=== PATIENT | female | born 1990 | race American Indian/Alaskan Native ===

== ENCOUNTER 2016-07-06 08:11 | Emergency (ER) | payer SELFPAY ==
[2016-07-06] MEDS ORDERED: TORADOL IM ONE (11:27)
--- NOTE | 2016-07-06 11:27 | Emergency Department Report ---
Upper Extremity - HPI Chief Complaint: Extremity Injury, Upper Stated Complaint: LEFT WRIST SWOLLEN Time Seen by Provider: 07/06/16 10:52 Upper Extremity: Left Wrist Occurred When: 3 Days Severity: moderate Symptoms: Yes Pain with Movement, No Deformity, No Limited Range of Movement, No Numbness, No Weakness, No Swelling, No Bruising/Ecchymosis, No Laceration or Abrasion Other History: 25-year-old female past medical history obesity presents with complaint of 3 days of left wrist pain. Denies any fevers chills no direct trauma and no falls. Patient cannot recollect any specific action that caused pain in her wrist. Patient complaining of very mild swelling of her left wrist. Denies any paresthesias. Denies any other symptoms. Denies any history of DVT ED Review of Systems ROS: Stated complaint: LEFT WRIST SWOLLEN Other details as noted in HPI Constitutional: denies: chills, fever Eyes: denies: eye pain, eye discharge, vision change ENT: denies: ear pain, throat pain Respiratory: denies: cough, shortness of breath, wheezing Cardiovascular: denies: chest pain, palpitations Endocrine: no symptoms reported Gastrointestinal: denies: abdominal pain, nausea, diarrhea Genitourinary: denies: urgency, dysuria, discharge Musculoskeletal: as per HPI, joint swelling. denies: back pain, arthralgia Skin: denies: rash, lesions Neurological: denies: headache, weakness, paresthesias Psychiatric: denies: anxiety, depression Hematological/Lymphatic: denies: easy bleeding, easy bruising ED Past Medical Hx - Past Medical History Previous Medical History?: No - Surgical History Past Surgical History?: Yes Additional Surgical History: x 1 - Social History Smoking Status: Never Smoker Substance Use Type: Alcohol - Medications Home Medications: Home Medications Medication Instructions Recorded Confirmed Last Taken Type Cyclobenzaprine [Flexeril] 10 mg PO TID PRN #15 tablet 07/06/16 Unknown Rx Ibuprofen [Motrin 200 MG tab] 1 tab PO PRN PRN 07/06/16 07/06/16 07/06/16 History Naproxen [Naprosyn TAB] 500 mg PO BID PRN #30 tablet 07/06/16 Unknown Rx Upper Extremity Exam - Exam General: Vital signs noted. No distress. Alert and acting appropriately. Head and Torso: No HEENT Abnormality, No Neck Tenderness, No Chest/Lungs Abnormality, No Abdominal Tenderness, No Back Tenderness Shoulder Exam: Yes Normal Range of Motion in Shoulder, No Shoulder Tenderness, No Clavicle Tenderness, No Shoulder Deformity, No AC Joint Tenderness Arm Exam: No Arm/Humerus Tenderness, No Arm Deformity Elbow: No Elbow Tenderness, No Normal Range of Motion in Elbow, No Elbow Deformity Forearm: No Forearm Tenderness, No Forearm Deformity, No Pain with Pronation, No Pain with Supination Wrist: Yes Wrist Tenderness (mild dorsal wrist tenderness very mild swelling), Yes Normal ROM in Wrist (flexion and extension intact), No Wrist Deformity, No Snuffbox Tenderness (no snuffbox tenderness), No Pain with Axial Thumb Compression Hand: Yes Normal ROM in Digit(s), No Hand Tenderness, No Hand Deformity, No Digit Tenderness, No Digit(s) Deformity, No Tendon Dysfunction CMS Exam: Yes Normal Distal Pulses (distal brachial and radial pulses intact), Yes Normal Capillary Refill, No Broken Skin, No Normal Distal Sensation Hand L/R Front: 1 - Mild pain on palpation here, no erythema no signs of cellulitis ED Course Vital Signs 07/06/16 08:21 Temperature 98.3 F Pulse Rate 80 Respiratory 16 Rate Blood Pressure 139/83 O2 Sat by Pulse 97 Oximetry ED Medical Decision Making - Medical Decision Making A/P: Left wrist pain 1- x-ray within normal limits, patient feels relief with Toradol 2- range of motion flexion extension left wrist intact no clinical signs of infection no erythema 3-it is possible patient may have mild case of gout more likely tendinitis as patient states she works with her hands on a daily basis also possible to have carpal tunnel this patient does have positive Tinel's test 4-will place patient in the left wrist splint and refer to orthopedics and prescribed naproxen when necessary for pain 5-advised patient to return to the ED if she notices any erythema or develops any fever and chills Critical care attestation.: If time is entered above; I have spent that time in minutes in the direct care of this critically ill patient, excluding procedure time. ED Disposition Clinical Impression: Left wrist pain Disposition: DISCHARGED TO HOME OR SELFCARE Is pt being admited?: No Does the pt Need Aspirin: No Condition: Stable Instructions: Arthralgia (ED), Tendinitis (ED), Carpal Tunnel Syndrome (ED), RICE Therapy (ED) Prescriptions: Cyclobenzaprine [Flexeril] 10 mg PO TID PRN #15 tablet PRN Reason: Muscle Spasm Naproxen [Naprosyn TAB] 500 mg PO BID PRN #30 tablet PRN Reason: Pain Referrals: ALON HAYNES MD [Staff Physician] - 3-5 Days Forms: Work/School Release Form(ED) Time of Disposition: 12:28
--- NOTE | 2016-07-06 12:01 | XRay Report ---
LEFT WRIST, 4 views: HISTORY: Left wrist pain and swelling. Routine views demonstrate the carpal bones to be well mineralized with well preserved bony mineralization and interosseous joint spaces. The carpal and adjacent articular bones have normal contours. The surrounding soft tissues are unremarkable. IMPRESSION: Normal study.
[2016-07-06 12:42] VITALS: BP 127/83
== END 2016-07-06 12:50 | disposition home or self-care (01) ==
LOC: ED 08:11
DX: M25.532 Pain in left wrist (principal); E66.9 Obesity, unspecified; X58.XXXA Exposure to other specified factors, initial encounter; Y93.89 Activity, other specified; Y99.8 Other external cause status; Y92.89 Other specified places as the place of occurrence of the external cause
CPT/HCPCS: 29125; 73110; 96372; 99283; J1885

== ENCOUNTER 2018-10-31 16:27 | Emergency (ER) | payer SELFPAY ==
[2018-10-31 16:35] VITALS: BP 148/79
--- NOTE | 2018-10-31 16:36 | Event Note ---
ED Screening Note ED Screening Note: pmh carpel tunnel psh none rx none cc vag dc-abnormal for her denies pain at present but pelvic pain very bad during cycle 1 partner, not protected This initial assessment/diagnostic orders/clinical plan/treatment(s) is/are subject to change based on patients health status, clinical progression and re- assessment by fellow clinical providers in the ED. Further treatment and workup at subsequent clinical providers discretion. Patient/guardian urged not to elope from the ED as their condition may be serious if not clinically assessed and managed. Initial orders include: ro uti/ preg/sti
[2018-10-31 21:11] LABS: Bilirubin,Urine NEG (Negative); Blood,Urine SM (Negative); Color,Urine Yellow (Yellow); Mucus,Urine FEW /HPF; Protein,Urine <15 mg/dL mg/dL (Negative); Urobilinogen,Urine < 2.0 mg/dL (<2.0)
[2018-10-31 21:20] LABS: HCG Qualitative,Urine Negative (Negative)
--- NOTE | 2018-10-31 21:37 | Emergency Department Report ---
ED Female HPI - General Chief complaint: Urogenital-Female Stated complaint: STD CHECK Time Seen by Provider: 10/31/18 16:34 Source: patient Mode of arrival: Ambulatory Limitations: No Limitations - Related Data Home Medications Medication Instructions Recorded Confirmed Last Taken Ibuprofen [Motrin 200 MG tab] 1 tab PO PRN PRN 07/06/16 07/06/16 07/06/16 Previous Rx's Medication Instructions Recorded Last Taken Type Cyclobenzaprine [Flexeril 10 MG 10 mg PO TID PRN #15 tablet 01/11/17 Unknown Rx TAB] Naproxen [Naprosyn TAB] 500 mg PO BID PRN #30 tablet 01/11/17 Unknown Rx Sulfamethoxazole/Trimethoprim 1 each PO BID #10 tablet 01/11/17 Unknown Rx [Bactrim DS TAB] metroNIDAZOLE [Flagyl] 500 mg PO Q12HR #14 tab 10/31/18 Unknown Rx Allergies Allergy/AdvReac Type Severity Reaction Status Date / Time No Known Allergies Allergy Verified 08/30/14 15:37 ED Review of Systems ROS: Stated complaint: STD CHECK Other details as noted in HPI Comment: All other systems reviewed and negative ED Past Medical Hx - Past Medical History Previous Medical History?: Yes Hx Kidney Stones: Yes - Surgical History Past Surgical History?: Yes Additional Surgical History: x 1 - Social History Smoking Status: Current Every Day Smoker Substance Use Type: None - Medications Home Medications: Home Medications Medication Instructions Recorded Confirmed Last Taken Type Ibuprofen [Motrin 200 MG tab] 1 tab PO PRN PRN 07/06/16 07/06/16 07/06/16 History Cyclobenzaprine [Flexeril 10 MG 10 mg PO TID PRN #15 tablet 01/11/17 Unknown Rx TAB] Naproxen [Naprosyn TAB] 500 mg PO BID PRN #30 tablet 01/11/17 Unknown Rx Sulfamethoxazole/Trimethoprim 1 each PO BID #10 tablet 01/11/17 Unknown Rx [Bactrim DS TAB] metroNIDAZOLE [Flagyl] 500 mg PO Q12HR #14 tab 10/31/18 Unknown Rx ED Physical Exam - General Limitations: No Limitations General appearance: alert, in no apparent distress - Head Head exam: Present: atraumatic, normocephalic - Eye Eye exam: Present: normal appearance, PERRL, EOMI - ENT ENT exam: Present: mucous membranes moist - Neck Neck exam: Present: normal inspection - Respiratory Respiratory exam: Present: normal lung sounds bilaterally. Absent: respiratory distress - Cardiovascular Cardiovascular Exam: Present: regular rate, normal rhythm. Absent: systolic murmur, diastolic murmur, rubs, gallop - GI/Abdominal GI/Abdominal exam: Present: soft, normal bowel sounds - Speculum exam: Present: vaginal discharge, vaginal bleeding, other. Absent: cervical discharge, foreign body, tissue, laceration Bi-manual exam: Present: normal bi-manual exam - Extremities Exam Extremities exam: Present: normal inspection, normal capillary refill. Absent: full ROM - Back Exam Back exam: Present: normal inspection. Absent: full ROM, CVA tenderness (R), CVA tenderness (L) - Neurological Exam Neurological exam: Present: alert, oriented X3, CN II-XII intact - Psychiatric Psychiatric exam: Present: normal affect, normal mood - Skin Skin exam: Present: warm, dry, intact, normal color. Absent: rash ED Course Vital Signs 10/31/18 16:33 Temperature 98.4 F Pulse Rate 92 H Respiratory 18 Rate Blood Pressure 148/79 O2 Sat by Pulse 99 Oximetry Critical care attestation.: If time is entered above; I have spent that time in minutes in the direct care of this critically ill patient, excluding procedure time. ED Disposition Clinical Impression: Bacterial vaginal infection Disposition: TO HOME OR SELFCARE Is pt being admited?: No Does the pt Need Aspirin: No Condition: Stable Instructions: Bacterial Vaginosis (ED) Prescriptions: metroNIDAZOLE [Flagyl] 500 mg PO Q12HR #14 tab Referrals: PRIMARY CARE [Primary Care Provider] - 3-5 Days [facility] [Provider Group] - 3-5 Days Forms: STI Treatment and Prevention
== END 2018-10-31 22:00 | disposition home or self-care (01) ==
LOC: ED 16:27
DX: N76.0 Acute vaginitis (principal); B96.89 Other specified bacterial agents as the cause of diseases classified elsewhere; F17.200 Nicotine dependence, unspecified, uncomplicated
CPT/HCPCS: 81001; 81025; 87210; 87591

== ENCOUNTER 2018-11-23 09:21 | Emergency (ER) | payer SELFPAY ==
--- NOTE | 2018-11-23 09:49 | Consultation ---
History of Present Illness History of present illness: [facility] Impression: Stroke Not a tpa candidate due to:Less likely to be stroke. Minor non disabling symptoms. Right arm symptoms related to pain. Symptoms not consistent with LVO therefore no SANDIP Comments: Last Known Well: 23:00 [facility] contacted: 9:31 [facility] at bedside: 9:35 NIHSS assessment time: 9:38 Recommendations: CTA neck to r/o dissection. Pain control. If symptoms persist can get MRI brain. Inpatient neurology consultation Inpatient stroke evaluation as per Neurology/ Internal Medicine Discussed with ED MD Please call with questions CC: right arm pain and numbness History of Present Illness: Patient is a 28 YO F with no PMH presented with right shoulder pain and numbness. She went to bed last night at 23:00 and woke up this morning with right shoulder pain. She thought she might have slept on it wrong. She went to work and she sneezed, she had numb/tingly feeling going up from her hand to her neck. She states that it is mostly pain that is causing her symptoms. Denies weakness but states it hurts to move her arm. No other symptoms. Diagnostic: CT Head: No acute Intracranial findings. Exam: NIH Stroke Scale/Score (NIHSS) RESULT SUMMARY: 0 points NIH Stroke Scale INPUTS: 1A: Level of consciousness > 0 = Alert; keenly responsive 1B: Ask month and age > 0 = Both questions right 1C: 'Blink eyes' & 'squeeze hands' > 0 = Performs both tasks 2: Horizontal extraocular movements > 0 = Normal 3: Visual mayes > 0 = No visual loss 4: Facial palsy > 0 = Normal symmetry 5A: Left arm motor drift > 0 = No drift for 10 seconds 5B: Right arm motor drift > 0 = No drift for 10 seconds 6A: Left leg motor drift > 0 = No drift for 5 seconds 6B: Right leg motor drift > 0 = No drift for 5 seconds 7: Limb Ataxia > 0 = No ataxia 8: Sensation > 0 = Normal; no sensory loss 9: Language/aphasia > 0 = Normal; no aphasia 10: Dysarthria > 0 = Normal 11: Extinction/inattention > 0 = No abnormality Medical Decision Making: - Extensive number of diagnosis or management options are considered above. - Extensive amount of complex data reviewed. - High risk of complication and/or morbidity or mortality are associated with differential diagnostic considerations above. - There may be Uncertain outcome and increased probability of prolonged functional impairment or high probability of severe prolonged functional impairment associated with some of these differential diagnosis. Medical Data Reviewed: 1.Data reviewed include clinical labs, radiology, Medical Tests; 2.Tests results discussed w/performing or interpreting physician; 3.Obtaining/reviewing old medical records; 4.Obtaining case history from another source; 5.Independent review of image, tracing or specimen. Patient was informed the neurology consult would happen via telehealth consult by way of interactive audio and video telecommunications and consented to receiving care in this manner. Medications and Allergies Allergies Allergy/AdvReac Type Severity Reaction Status Date / Time No Known Allergies Allergy Verified 08/30/14 15:37 Home Medications Medication Instructions Recorded Confirmed Last Taken Type Ibuprofen [Motrin 200 MG tab] 1 tab PO PRN PRN 07/06/16 07/06/16 07/06/16 Histo ry Cyclobenzaprine [Flexeril 10 MG 10 mg PO TID PRN #15 tablet 01/11/17 Unknown Rx TAB] Naproxen [Naprosyn TAB] 500 mg PO BID PRN #30 tablet 01/11/17 Unknown Rx Sulfamethoxazole/Trimethoprim 1 each PO BID #10 tablet 01/11/17 Unknown Rx [Bactrim DS TAB] metroNIDAZOLE [Flagyl] 500 mg PO Q12HR #14 tab 10/31/18 Unknown Rx Physical Examination - Vital Signs Vital Signs: Vital Signs Temp Pulse Resp BP Pulse Ox 98.3 F 87 20 132/73 98 11/23/18 09:25 11/23/18 09:25 11/23/18 09:25 11/23/18 09:25 11/23/18 09:25
--- NOTE | 2018-11-23 10:10 | Cat Scan Report ---
CT HEAD WITHOUT CONTRAST INDICATION / CLINICAL INFORMATION: neuro deficits <6hrs or sx present upon awakening. Code stroke TECHNIQUE: Axial imaging performed from the skull apex through the skull base without the use of cont rast. Sagittal and coronal reformatted images. All CT scans at this location are performed using CT dose reduction for ALARA by means of automated exposure control. COMPARISON: None available. FINDINGS: CEREBRAL PARENCHYMA: No significant abnormality. No acute territorial infarct. HEMORRHAGE: None. EXTRA-AXIAL SPACES: Normal in size and morphology for the patient's age. VENTRICULAR SYSTEM: Normal in size and morphology for the patient's age. MIDLINE SHIFT OR HERNIATION: None. CEREBELLUM / BRAINSTEM: There is suggestion of tonsillar ectopia consistent with a possible Chiari I malformation. Please note that the foramen magnum region is at the lower edge of the imaged brain and is poorly evaluated on this study. CALVARIUM: No significant abnormality. ORBITS: Normal as visualized. PARANASAL SINUSES / MASTOID AIR CELLS: Normal as visualized. SOFT TISSUES of HEAD: No significant abnormality. ADDITIONAL FINDINGS: None. IMPRESSION: No acute intracranial abnormality. Possible Chiari I malformation. These findings were discussed with Dr. Collins in the emergency department at [address] [facility] [address] time. Signer Name: Marcello Koehler Jr, MD Signed: 11/23/2018 10:06 AM Workstation Name: [id number]
[2018-11-23 10:11] LABS: Basophils # (Auto) 0.1 K/mm3 (0.0-0.1); Basophils % (Auto) 0.7 % (0.0-1.8); Eosinophils # (Auto) 0.1 K/mm3 (0.0-0.4); Eosinophils % (Auto) 1.3 % (0.0-4.3); Hemoglobin 11.1 gm/dl (10.1-14.3); Lymphocytes # (Auto) 3.3 K/mm3 (1.2-5.4); Lymphocytes % (Auto) 33.2 % (13.4-35.0); Mean Corpuscular HGB Conc 32 % (30-34); Mean Corpuscular Volume 80 fl (79-97); Monocytes # (Auto) 0.9 K/mm3 (0.0-0.8); Monocytes % (Auto) 9.2 % (0.0-7.3); Platelet Count 339 K/mm3 (140-440); Red Blood Count 4.38 M/mm3 (3.65-5.03); Red Cell Distribution Width 17.2 % (13.2-15.2)
[2018-11-23 10:21] LABS: INR 2.22 (0.87-1.13)
[2018-11-23 10:23] LABS: BUN/Creatinine Ratio 11; Blood Urea Nitrogen 8 mg/dL (7-17); Calcium 9.1 mg/dL (8.4-10.2); Hemolysis Index 15
[2018-11-23 10:31] LABS: Partial Thromboplastin Time 25.1 Sec. (24.2-36.6)
--- NOTE | 2018-11-23 10:43 | Emergency Department Report ---
HPI - General Chief Complaint: Neuro Symptoms/Deficit Time Seen by Provider: 11/23/18 09:55 - HPI HPI: 28-year-old -Citizen Of [place] female presents to the emergency department as a code stroke. Patient woke up this morning around 5 AM with right shoulder pain. She thought she may have just slept on her arm funny at first. She went to work and started having some tingling from the fingers of the right hand all the way up through her neck and too behind her ear. Then she started having sharp pains running up the area, followed by some blurry vision, and then some generalized weakness. The patient says that she felt herself going to the floor but did not lose consciousness as she remembers asking them to call 911. Patient is currently awake and alert and still complains of right arm and neck pain. She is an occasional tobacco smoker. Otherwise she denies any past medical history. She did not take anything received anything for her symptoms in route. She does not have a primary care physician. No recent travel or sick contacts at home. ED Past Medical Hx - Past Medical History Previous Medical History?: No Hx Kidney Stones: Yes - Surgical History Past Surgical History?: No Additional Surgical History: x 1 - Social History Smoking Status: Current Every Day Smoker Substance Use Type: None - Medications Home Medications: Home Medications Medication Instructions Recorded Confirmed Last Taken Type No Known Home Medications [No 11/23/18 11/23/18 Unknown History Reported Home Medications] ED Review of Systems ROS: Stated complaint: SIDE PAIN Other details as noted in HPI Comment: All other systems reviewed and negative Constitutional: denies: chills, fever Eyes: vision change (blurry vision). denies: eye pain ENT: denies: ear pain, throat pain Respiratory: denies: cough, shortness of breath Cardiovascular: denies: chest pain, palpitations Gastrointestinal: denies: abdominal pain, vomiting Genitourinary: denies: dysuria, discharge Musculoskeletal: arthralgia, myalgia Skin: denies: rash, lesions Neurological: weakness, numbness, paresthesias, other (near syncope) Physical Exam - Physical Exam Vital Signs: Vital Signs 11/23/18 09:25 Temperature 98.3 F Pulse Rate 87 Respiratory 20 Rate Blood Pressure 132/73 [Left] O2 Sat by Pulse 98 Oximetry Physical Exam: GENERAL: The patient is well-developed well-nourished. HENT: Normocephalic. Atraumatic. Patient has moist mucous membranes. EYES: Extraocular motions are intact. Pupils equal reactive to light bilaterally. No nystagmus. NECK: Supple. Trachea is midline. CHEST/LUNGS: Clear to auscultation. There is no respiratory distress noted. HEART/CARDIOVASCULAR: Regular. There is no tachycardia. There is no murmur. ABDOMEN: Abdomen is soft, nontender. Patient has normal bowel sounds. There is no abdominal distention. SKIN: Skin is warm and dry. NEURO: The patient is awake, alert, and oriented. The patient is cooperative. The patient has no focal neurologic deficits. Normal speech. Cranial nerves II through XII grossly intact. No pronator drift. No dysmetria. MUSCULOSKELETAL: There is no tenderness or deformity. There is no limitation range of motion. There is no evidence of acute injury. ED Course Vital Signs 11/23/18 09:25 Temperature 98.3 F Pulse Rate 87 Respiratory 20 Rate Blood Pressure 132/73 [Left] O2 Sat by Pulse 98 Oximetry - Consultations Consultation #1: 11/23/18 20:05 Patient was seen by the telemedicine neurologist, Dr. Fletcher, immediately after she had a CT scan of the head without contrast. He did not feel that this was a probable stroke, gave the patient an NIH stroke scale of 0, suggested that it could be some type of peripheral lesion, but recommended CT angiography of the head and neck to be completed. ED Medical Decision Making - Lab Data Result diagrams: 11/23/18 09:55 11/23/18 09:55 Labs 11/23/18 11/23/18 11/23/18 09:55 09:55 09:55 WBC 9.9 RBC 4.38 Hgb 11.1 Hct 35.0 MCV 80 MCH 25 L MCHC 32 RDW 17.2 H Plt Count 339 Lymph % (Auto) 33.2 [place] % (Auto) 9.2 H Eos % (Auto) 1.3 Baso % (Auto) 0.7 Lymph # 3.3 [place] # 0.9 H Eos # 0.1 Baso # 0.1 Seg Neutrophils % 55.6 Seg Neutrophils # 5.5 PT 24.2 H INR 2.22 H APTT 25.1 Thrombin Time Sodium 137 Potassium 4.0 Chloride 101.7 Carbon Dioxide 26 Anion Gap 13 BUN 8 Creatinine 0.7 Estimated GFR > 60 BUN/Creatinine Ratio 11 Glucose 85 Calcium 9.1 Total Bilirubin Direct Bilirubin Indirect Bilirubin AST ALT Alkaline Phosphatase Troponin T < 0.010 Total Protein Albumin Albumin/Globulin Ratio TSH Urine HCG, Qual 11/23/18 11/23/18 11/23/18 09:55 09:55 09:55 WBC RBC Hgb Hct MCV MCH MCHC RDW Plt Count Lymph % (Auto) [place] % (Auto) Eos % (Auto) Baso % (Auto) Lymph # [place] # Eos # Baso # Seg Neutrophils % Seg Neutrophils # PT INR APTT Thrombin Time 17.6 Sodium Potassium Chloride Carbon Dioxide Anion Gap BUN Creatinine Estimated GFR BUN/Creatinine Ratio Glucose Calcium Total Bilirubin 0.20 Direct Bilirubin < 0.2 Indirect Bilirubin 0.0 AST 21 ALT 13 Alkaline Phosphatase 68 Troponin T Total Protein 7.5 Albumin 4.0 Albumin/Globulin Ratio 1.1 TSH 3.430 Urine HCG, Qual 11/23/18 Unknown WBC RBC Hgb Hct MCV MCH MCHC RDW Plt Count Lymph % (Auto) [place] % (Auto) Eos % (Auto) Baso % (Auto) Lymph # [place] # Eos # Baso # Seg Neutrophils % Seg Neutrophils # PT INR APTT Thrombin Time Sodium Potassium Chloride Carbon Dioxide Anion Gap BUN Creatinine Estimated GFR BUN/Creatinine Ratio Glucose Calcium Total Bilirubin Direct Bilirubin Indirect Bilirubin AST ALT Alkaline Phosphatase Troponin T Total Protein Albumin Albumin/Globulin Ratio TSH Urine HCG, Qual Negative Vital Signs 11/23/18 11/23/18 11/23/18 09:25 15:33 16:00 Temperature 98.3 F 98 F Pulse Rate 87 74 72 Respiratory 20 13 16 Rate Blood Pressure 126/74 Blood Pressure 132/73 125/72 [Left] O2 Sat by Pulse 98 99 99 Oximetry 11/23/18 11/23/18 11/23/18 17:00 18:00 19:30 Temperature 98.2 F Pulse Rate 86 Respiratory 18 13 16 Rate Blood Pressure 130/73 116/57 Blood Pressure 125/68 [Left] O2 Sat by Pulse 100 99 100 Oximetry - EKG Data -: EKG Interpreted by De EKG shows normal: sinus rhythm, axis, intervals, QRS complexes, ST-T waves Rate: normal - EKG Data When compared to previous EKG there are: previous EKG unavailable Interpretation: normal EKG - Radiology Data Radiology results: report reviewed CT HEAD WITHOUT CONTRAST INDICATION / CLINICAL INFORMATION: neuro deficits <6hrs or sx present upon awakening. Code stroke TECHNIQUE: Axial imaging performed from the skull apex through the skull base without the use of contrast. Sagittal and coronal reformatted images. All CT scans at this location are performed using CT dose reduction for ALARA by means of automated exposure control. COMPARISON: None available. FINDINGS: CEREBRAL PARENCHYMA: No significant abnormality. No acute territorial infarct. HEMORRHAGE: None. EXTRA-AXIAL SPACES: Normal in size and morphology for the patient's age. VENTRICULAR SYSTEM: Normal in size and morphology for the patient's age. MIDLINE SHIFT OR HERNIATION: None. CEREBELLUM / BRAINSTEM: There is suggestion of tonsillar ectopia consistent with a possible Chiari I malformation. Please note that the foramen magnum region is at the lower edge of the imaged brain and is poorly evaluated on this study. CALVARIUM: No significant abnormality. ORBITS: Normal as visualiz ed. PARANASAL SINUSES / MASTOID AIR CELLS: Normal as visualized. SOFT TISSUES of HEAD: No significant abnormality. ADDITIONAL FINDINGS: None. IMPRESSION: No acute intracranial abnormality. Possible Chiari I malformation. CT angio neck INDICATION / CLINICAL INFORMATION: 28 years Female; CVA. TECHNIQUE: Thin cut axial images obtained through the head during IV bolus contrast administration. Sagittal, coronal, and 3 plane MIP reconstructions performed by the technologist. NASCET type criteria used evaluate stenoses. All CT scans at this location are performed using CT dose reduction for ALARA by means of automated exposure control. COMPARISON: None available. FINDINGS: ARCH: Essentially normal aortic arch branching suggested. However, the right vertebral artery appears to have its origin from the aortic arch, distal to the origin of the left subclavian artery. CAROTID ARTERIES: The visualized common and internal carotid arteries are widely patent. VERTEBRAL ARTERIES: Left dominant vertebral system seen. No significant stenosis appreciated. ADDITIONAL FINDINGS: Prominent soft tissue is seen in the roof the nasopharynx, presumably related to reactive adenoidal tissue. Remainder the surrounding soft tissues are grossly normal. IMPRESSION: No significant stenosis appreciated on this CTA of the neck. CT angio head INDICATION / CLINICAL INFORMATION: 28 years Female; CVA. TECHNIQUE: Thin cut axial images obtained through the head during IV bolus contrast administration. Sagittal, coronal, and 3 plane MIP reconstructions performed by the technologist. NASCET type criteria used evaluate stenoses. Automated exposure control utilized for radiation reduction purposes. COMPARISON: None available. FINDINGS: INTERNAL CAROTID ARTERIES: No significant narrowing appreciated. VERTEBROBASILAR SYSTEM: No significant narrowing appreciated. DISTAL BRANCHES: Distal branches of the anterior, middle, and posterior cerebral arteries are fairly symmetric in appearance and number. ANEURYSM: None identified. ADDITIONAL FINDINGS: Remainder of the surrounding soft tissues are grossly normal. IMPRESSION: No significant narrowing a ppreciated on this CTA of the head. - Medical Decision Making This patient presented as a code stroke secondary to near syncope and some right arm numbness, paresthesias and/or pain. CT head was done and it does not show any any acute intracranial process. There was some question about a possible Chiari malformation type I. Seen by telemedicine neurology who agrees that the patient does not appear to be a TPA candidate but recommended CT angiography of the head and neck. CT angiography of the head and neck did not show any acute processes including any type of thrombus or significant stenosis. The patient's labs have been unremarkable. EKG did not show any signs of ST elevation PA, ischemia or dysrhythmia. The patient is an NIH stroke scale of 0. The numbness she describes in the right arm sounds more like paresthesias. Her right arm pain Was up towards her neck and appears more consistent with something like cervical radiculopathy. She does not have any focal motor or sensory deficits in her cranial nerves are intact. She was reevaluated multiple times over multiple hours and says she is feeling improved. She has no numbness whatsoever and even has decreased pain at this time. I do not believe the patient had a CVA and even a TIA seems less likely. Her vital signs appeared stable throughout ED course. The patient appears safe for discharge home at this time. She has been given a referral for neurology and orthopedics. She will return to the ER with any worsening of her symptoms or any acute distress. - Differential Diagnosis CVA, TIA, paresthesias, cervical radiculopathy Critical Care Time: No Critical care attestation.: If time is entered above; I have spent that time in minutes in the direct care of this critically ill patient, excluding procedure time. ED Disposition Clinical Impression: Right arm pain, Paresthesias, Near syncope Disposition: DC-01 TO HOME OR SELFCARE Is pt being admited?: No Condition: Stable Instructions: Paresthesia (ED), Near Syncope (ED), Arthralgia (ED) Additional Instructions: Please follow-up with your primary care physician in the next few days. I am giving you a referral for a local neurologist, Dr. Ricketts, to follow-up regarding the dizziness, the episode where you nearly passed out, and the intermittent numbness or paresthesias of your right arm. I'm also giving you a referral for a local orthopedist, Dr. Cruz, to follow up regarding your right arm pain. Please return to the emergency department immediately with any worsening of your symptoms, or with any acute distress. Referrals: JC RICKETTS MD [Referring] - 2-3 Days ALON CRUZ MD [Staff Physician] - 2-3 Days [facility] [Outside] - 2-3 Days Forms: Work/School Release Form(ED) Time of Disposition: 17:05 - Assessment Assessment Interval: Baseline - Level of Consciousness 1a. Level of Consciousness: alert/keenly responsive - LOC Questions 1b. LOC Questions: answers both correctly - LOC Command 1c. LOC Commands: performs tasks correctly - Best Gaze 2. Best Gaze: normal - Visual 3. Visual: no visual loss - Facial Palsy 4. Facial Palsy: normal symmetrical movement - Motor Arm 5a. Motor Arm Left: no drift 5b. Motor Arm Right: no drift - Motor Leg 6a. Motor Leg Left: no drift 6b. Motor Leg Right: no drift - Limb Ataxia 7. Limb Ataxia: absent - Sensory 8. Sensory: normal - Best Language 9. Best Language: no aphasia - Dysarthria 10. Dysarthria: normal - Extinction and Inattention 11. Extinction/Inattention: no abnormality - Scoring Total Score: 0 Stroke Severity: No Stroke Symptoms
[2018-11-23 11:12] LABS: Alanine Aminotransferase 13 units/L (7-56)
[2018-11-23 11:18] LABS: HCG Qualitative,Urine Negative (Negative)
[2018-11-23 11:30] LABS: Bilirubin,Direct < 0.2 mg/dL (0-0.2)
--- NOTE | 2018-11-23 13:35 | Cat Scan Report ---
CT angio neck INDICATION / CLINICAL INFORMATION: 28 years Female; CVA. TECHNIQUE: Thin cut axial images obtained through the head during IV bolus contrast administration. S agittal, coronal, and 3 plane MIP reconstructions performed by the technologist. NASCET type criteria used evaluate stenoses. All CT scans at this location are performed using CT dose reduction for ALAR A by means of automated exposure control. COMPARISON: None available. FINDINGS: ARCH: Essentially normal aortic arch branching suggested. However, the right vertebral artery appears to have its origin from the aortic arch, distal to the origin of the left subclavian artery. CAROTID ARTERIES: The visualized common and internal carotid arteries are widely patent. VERTEBRAL ARTERIES: Left dominant vertebral system seen. No significant stenosis appreciated. ADDITIONAL FINDINGS: Prominent soft tissue is seen in the roof the nasopharynx, presumably related to reactive adenoidal tissue. Remainder the surrounding soft tissues are grossly normal. IMPRESSION: No significant stenosis appreciated on this CTA of the neck. Signer Name: Travis Domínguez MD, III Signed: 11/23/2018 1:31 PM Workstation Name: [id number]
--- NOTE | 2018-11-23 15:51 | Cat Scan Report ---
CT angio head INDICATION / CLINICAL INFORMATION: 28 years Female; CVA. TECHNIQUE: Thin cut axial images obtained through the head during IV bolus contrast administration. S agittal, coronal, and 3 plane MIP reconstructions performed by the technologist. NASCET type criteria used evaluate stenoses. Automated exposure control utilized for radiation reduction purposes. COMPARISON: None available. FINDINGS: INTERNAL CAROTID ARTERIES: No significant narrowing appreciated. VERTEBROBASILAR SYSTEM: No significant narrowing appreciated. DISTAL BRANCHES: Distal branches of the anterior, middle, and posterior cerebral arteries are fairly symmetric in appearance and number. ANEURYSM: None identified. ADDITIONAL FINDINGS: Remainder of the surrounding soft tissues are grossly normal. IMPRESSION: No significant narrowing appreciated on this CTA of the head. Signer Name: Travis Domínguez MD, III Signed: 11/23/2018 3:46 PM Workstation Name: [id number]
[2018-11-23] MEDS ORDERED: NACL 0.9% 1000 ML 2,000 ML IV ONE (16:58)
[2018-11-23 19:31] VITALS: BP 125/68
== END 2018-11-23 19:32 | disposition home or self-care (01) ==
LOC: ED 09:21
DX: M79.601 Pain in right arm (principal); R20.2 Paresthesia of skin; R55 Syncope and collapse; F17.200 Nicotine dependence, unspecified, uncomplicated
CPT/HCPCS: 36415; 70450; 70496; 70498; 80048; 80076; 81025; 84443; 84484; 85025; 85610; 85670; 85730; 93005; 93010; 96360; 96361; 99285; J7030; Q9967